=== PATIENT | female | born 1950 | race Caucasian/White ===

== ENCOUNTER 2018-04-08 16:40 | Emergency (ER) | payer MEDICARE, BC ==
[2018-04-08] MEDS ORDERED: Ketorolac 30 MG/ML SDV IVPUSH ONE (17:18)
[2018-04-08] MEDS ORDERED: Cyclobenzaprine 10 MG Tab PO ONE (17:18)
[2018-04-08] MEDS ORDERED: Sodium Chloride 0.9% 10 ML Syringe FLUSH PRN (17:18)
[2018-04-08] MEDS ORDERED: HYDROmorphone 0.5 MG/0.5 ML Syringe IVPUSH ONE (17:18)
--- NOTE | 2018-04-08 17:25 | EDM.PDOC ---
ED HPI GENERAL MEDICAL PROBLEM - General Chief Complaint: Lower Extremity Injury/Pain Stated Complaint: LEG PAIN Time Seen by Provider: 04/08/18 17:05 Source of Information: Reports: Patient, Family History Limitations: Reports: No Limitations - History of Present Illness INITIAL COMMENTS - FREE TEXT/NARRATIVE: Inessa presents today with complaints of sudden onset low back pain, sharp and stabbing with radiation to left hip, left leg, left foot. She reports numbness/ tingling to left foot with difficulty ambulating. History of uterine CA in the past 18 months. She has tried use of rest and acetaminophen for pain. Left Hip Pain Score (Numeric/FACES): 8 - Related Data Allergies Allergy/AdvReac Type Severity Reaction Status Date / Time No Known Allergies Allergy Verified 04/08/18 16:50 Home Meds: Home Meds Acetaminophen [Pain Relief Extra Strength] 2 tab PO BID 04/08/18 [History] Ca Carb & Gluc/Mag Ox & Gluc [Calcium Magnesium Caplet] 1 tab PO DAILY 04/08/18 [History] Levothyroxine [Synthroid] 1 tab PO DAILY 04/08/18 [History] Multivitamin [Multivitamins] 1 tab PO DAILY 04/08/18 [History] Nortriptyline 1 tab PO DAILY 04/08/18 [History] Simvastatin [Zocor] 1 tab PO DAILY 04/08/18 [History] Tamoxifen [Nolvadex] 20 mg PO DAILY 04/08/18 [History] Past Medical History HEENT History: Reports: Impaired Vision Genitourinary History: Reports: UTI, Recurrent [employer] MANAGER History: Reports: Psychiatric History: Reports: Anxiety Endocrine/Metabolic History: Reports: Hypothyroidism Oncologic (Cancer) History: Reports: Breast, Other (See Below) Other Oncologic History: endometrial, DCIS breast cancer - Past Surgical History HEENT Surgical History: Reports: Tonsillectomy, Other (See Below) Other HEENT Surgeries/Procedures: cyst removed from right cheek Female Surgical History: Reports: Hysterectomy Musculoskeletal Surgical History: Reports: Arthroscopic Knee, Other (See Below) Other Musculoskeletal Surgeries/Procedures:: 2 surgeries right ankle. Oncologic Surgical History: Reports: Biopsy of Breast, Lumpectomy Social & Family History - Tobacco Use Smoking Status *Q: Never Smoker - Alcohol Use Days Per Week of Alcohol Use: 7 Number of Drinks Per Day: 1 Total Drinks Per Week: 7 - Recreational Drug Use Recreational Drug Use: No Review of Systems - Review of Systems Review Of Systems: See Below Constitutional: Reports: Weakness. Denies: Diaphoresis, Fever Eyes: Reports: No Symptoms Ears: Reports: No Symptoms Nose: Reports: No Symptoms Mouth/Throat: Reports: No Symptoms Respiratory: Denies: Shortness of Breath, Wheezing, Cough Cardiovascular: Reports: No Symptoms GI/Abdominal: Reports: Other (She reports pain from her low back radiates into left hip and LLQ of abdomen). Denies: Constipation, Diarrhea, Nausea, Vomiting Genitourinary: Reports: No Symptoms Musculoskeletal: Reports: Back Pain, Other (low back pain with radiation to left hip and left lower extremity, numbness and difficulty ambulating. ) Skin: Reports: No Symptoms Neurological: Reports: Numbness, Tingling, Difficulty Walking, Weakness, Gait Disturbance. Denies: Dizziness, Headache, Syncope Psychiatric: Reports: No Symptoms ED EXAM, GENERAL - Physical Exam Exam: See Below Free Text/Narrative:: Inessa is an alert and oriented 67 year old female presenting with complaints of sudden onset low back pain, radiation to left hip, left lower abdomen, left leg this morning while out shopping. She reports her left leg is numb and tingling. She denies changes to bowel/bladder function or sensation. Recent uterine/breast cancer with treatment including radiation. Exam Limited By: No Limitations General Appearance: Alert, WD/WN, Moderate Distress Eye Exam: Bilateral Eye: EOMI, Normal Inspection, PERRL Ears: Normal External Exam, Normal Canal, Hearing Grossly Normal, Normal TMs Ear Exam: Bilateral Ear: Auricle Normal, Canal Normal, TM normal Nose: Normal Inspection, Normal Mucosa, No Blood Throat/Mouth: Normal Inspection, Normal Lips, Normal Teeth, Normal Gums, Normal Oropharynx, Normal Voice, No Airway Compromise Head: Atraumatic, Normocephalic Neck: Normal Inspection, Supple, Non-Tender, Full Range of Motion. No: Lymphadenopathy (R), Lymphadenopathy (L) Respiratory/Chest: No Respiratory Distress, Lungs Clear, Normal Breath Sounds, No Accessory Muscle Use, Chest Non-Tender Cardiovascular: Normal Peripheral Pulses, Regular Rate, Rhythm, No Edema, No Gallop, No Murmur, No Rub Peripheral Pulses: 2+: Radial (L), Radial (R), Dorsalis Pedis (L), Dorsalis Pedis (R) GI/Abdominal: Normal Bowel Sounds, Soft, No Organomegaly, No Distention, No Mass , Tender, Other (tenderness with palpation to LLQ). No: Distended, Guarding, Rigid, Rebound Back Exam: Decreased Range of Motion, Other (Tenderness to left lower back, left hip with radiation to right lower back. Positive left leg raise, pain to back and left hip with right leg raise. ). No: Paraspinal Tenderness, Vertebral Tenderness Extremities: Normal Inspection, No Pedal Edema, Leg Pain, Limited Range of Motion, Other (Decreased sensation to left foot, no foot drop noted, imbalance in gait and difficulty lifting left leg with ambulation. Sensation to touch intact to bilateral feet/toes. patient able to stand on tips of toes without difficulty. ). No: Joint Swelling, Phan's Sign, Increased Warmth, Mottled, Redness Neurological: Alert, Oriented, CN II-XII Intact, Normal Cognition Psychiatric: Normal Affect, Normal Mood Skin Exam: Warm, Dry, Intact, Normal Color, No Rash Lymphatic: No Adenopathy Course - Vital Signs Last Recorded V/S: Last Vital Signs Temp 36.1 C 04/08/18 16:48 Pulse 73 04/08/18 16:48 Resp 16 04/08/18 16:48 BP 168/80 H 04/08/18 16:48 Pulse Ox 99 04/08/18 16:48 - Orders/Labs/Meds Orders: Active Orders 24 hr Category Date Time Status Lumbar Spine wo Cont [CT] Stat Exams 04/08/18 17:21 Taken Sodium Chloride 0.9% [Saline Flush] Med 04/08/18 17:18 Active 10 ml FLUSH ASDIRECTED PRN Saline Lock Insert [OM.PC] Routine Oth 04/08/18 17:18 Ordered Medication Orders Sodium Chloride (Saline Flush) 10 ml FLUSH ASDIRECTED PRN PRN Reason: Keep Vein Open Last Admin: 04/08/18 18:00 Dose: 10 ml Meds: Medications Generic Name Dose Route Start Last Admin Trade Name Freq PRN Reason Stop Dose Admin Sodium Chloride 10 ml 04/08/18 17:18 04/08/18 18:00 Saline Flush FLUSH 10 ml ASDIRECTED PRN Administration Keep Vein Open Discontinued Medications Generic Name Dose Route Start Last Admin Trade Name Freq PRN Reason Stop Dose Admin Cyclobenzaprine HCl 10 mg 04/08/18 17:18 04/08/18 17:58 Flexeril PO 04/08/18 17:19 10 mg ONETIME ONE Administration Hydromorphone HCl 0.5 mg 04/08/18 17:18 04/08/18 17:59 Dilaudid IVPUSH 04/08/18 17:19 0.5 mg ONETIME ONE Administration Ketorolac Tromethamine 30 mg 04/08/18 17:18 04/08/18 17:59 Toradol IVPUSH 04/08/18 17:19 30 mg ONETIME ONE Administration - Re-Assessments/Exams Free Text/Narrative Re-Assessment/Exam: 04/08/18 17:36 [place] [employer] checked for [place] and [place], appropriate. 04/08/18 18:35 Patient reports improvement in pain, increased ROM. 04/08/18 20:00 Patient provided education on medication use, pain management and follow up, patient and her verbalized understanding. Departure - Departure Time of Disposition: 19:19 Disposition: Home, Self-Care 01 Condition: Good Clinical Impression: Sciatic nerve pain - Discharge Information Instructions: Back Pain, Adult, [id number] Referrals: PCP,None [Primary Care Provider] - Forms: ED Department Discharge Additional Instructions: You have been evaluated and treated for low back pain/left sciatic pain. The CT scan of your spine/retroperitoneum/soft tissues was negative. You have been given IV pain medication and oral muscle relaxant. You may take naproxen 500mg by mouth twice per day as needed. Take cyclobenzaprine 5mg to 10mg by mouth three times a day as needed for pain. Use of topical diclofenac gel four times a day and lidocaine patches as directed can also help. It would be best for you to complete physical therapy. Obtain a referral from primary care for completion. Follow up with a primary provider in 7 to 10 days for a recheck. Return to the emergency room for worsening, issues or concerns. - My Orders Last 24 Hours: My Active Orders 04/08/18 17:18 Sodium Chloride 0.9% [Saline Flush] 10 ml FLUSH ASDIRECTED PRN Saline Lock Insert [OM.PC] Routine 04/08/18 17:21 Lumbar Spine wo Cont [CT] Stat - Assessment/Plan Last 24 Hours: My Active Orders 04/08/18 17:18 Sodium Chloride 0.9% [Saline Flush] 10 ml FLUSH ASDIRECTED PRN Saline Lock Insert [OM.PC] Routine 04/08/18 17:21 Lumbar Spine wo Cont [CT] Stat Assessment:: Sciatic nerve pain Plan: Patient evaluated and treated for low back pain/left sciatic pain. The CT scan of spine/retroperitoneum/soft tissues was negative. Patient been given IV pain medication and oral muscle relaxant. She may take naproxen 500mg by mouth twice per day as needed. Take cyclobenzaprine 5mg to 10mg by mouth three times a day as needed for pain. Use of topical diclofenac gel four times a day and lidocaine patches as directed can also help. It would be best for her to complete physical therapy. Obtain a referral from primary care for completion. Follow up with a primary provider in 7 to 10 days for a recheck. Return to the emergency room for worsening, issues or concerns.
== END 2018-04-08 20:40 | disposition home or self-care (01) ==
LOC: JP.ED 16:40
DX: M79.2 Neuralgia and neuritis, unspecified (principal); Z79.899 Other long term (current) drug therapy; Z87.440 Personal history of urinary (tract) infections
CPT/HCPCS: 72131; 99284; A9270; J1170; J1885; J7050